=== PATIENT | female | born 1950 | race Caucasian/White ===

== ENCOUNTER 2019-10-23 19:03 | Emergency (ER) | payer MEDICARE ==
[~2019-10-23] VITALS: Ht 157.5 cm; Wt 60.0 kg
[2019-10-23] MEDS ORDERED: METF1000 PO (19:18)
[2019-10-23] MEDS ORDERED: INSU100V8 SQ (19:18)
[2019-10-23] MEDS ORDERED: SIMV20TA19 PO (19:18)
--- NOTE | 2019-10-23 19:29 | NUR ---
[employer]: PT TO ROOM FROM LOBBY
[2019-10-23] MEDS ORDERED: SODIUM CHLORIDE FLUSH 10ML SYR IVF ONE (19:30)
[2019-10-23 19:57] LABS: MICROSCOPIC AUTO
[2019-10-23 19:58] LABS: BASOPHILS # (AUTO) 0.04 x10^3/uL (0-0.1); BASOPHILS % (AUTO) 1 % (0-1); EOSINOPHILS # (AUTO) 0.25 x10^3/uL (0-0.4); EOSINOPHILS % (AUTO) 4 % (1-7); LYMPHOCYTES # (AUTO) 2.41 x10^3/uL (1-3.4); LYMPHOCYTES % (AUTO) 37 % (22-44); MD NO; MEAN CORPUSCULAR HGB CONC 32.1 g/dL (32.4-35.8); MEAN CORPUSCULAR VOLUME 77.9 fL (80-100); MEAN PLATELET VOLUME 8.9 fL (7.4-10.4); MONOCYTES # (AUTO) 0.59 x10^3/uL (0.2-0.8); MONOCYTES % (AUTO) 9 % (2-9); NEUTROPHILS # (AUTO) 3.32 x10^3/uL (1.8-6.8); NEUTROPHILS % (AUTO) 50 % (42-75); PLATELET COUNT 304 x10^3/uL (130-400); RED BLOOD COUNT 4.82 x10^6/uL (3.82-5.3); RED CELL DISTRIBUTION WIDTH 17.3 % (9.6-15.2)
[2019-10-23 20:01] LABS: CULTURE INDICATED? YES
[2019-10-23 20:04] LABS: ALANINE AMINOTRANSFERASE 16 U/L (12-78); ALBUMIN 4.1 g/dL (3.4-5.0); ANION GAP 6 mmol/L (5-15); CALCIUM 9.5 mg/dL (8.5-10.1); CHLORIDE 105 mmol/L (98-107)
[2019-10-23 20:06] LABS: ALKALINE PHOSPHATASE 68 U/L (45-117); BILIRUBIN,TOTAL 0.2 mg/dL (0.2-1.0); CREATININE 0.71 mg/dL (0.55-1.02); TOTAL PROTEIN 8.4 g/dL (6.4-8.2)
[2019-10-23] MEDS ORDERED: OMNIPAQUE 350 MG/ML, 100ML BOTTLE ONE (20:32)
[2019-10-23 22:53] VITALS: BP 146/76
== END 2019-10-23 22:57 | disposition home or self-care (01) ==
LOC: ED 21:05
DX: N30.00 Acute cystitis without hematuria (principal); E11.65 Type 2 diabetes mellitus with hyperglycemia; E78.5 Hyperlipidemia, unspecified; R10.31 Right lower quadrant pain; Z90.49 Acquired absence of other specified parts of digestive tract
CPT/HCPCS: 36415; 74177; 80053; 81001; 83690; 85025; 87077; 87086; 87186; 99285; Q9967

== ENCOUNTER 2019-10-26 06:14 | Emergency (ER) | payer MEDICARE ==
[~2019-10-26] VITALS: Ht 157.5 cm; Wt 52.7 kg
[~2019-10-26 06:14] MED LIST: INSU100V8 SQ; METF1000 PO; SIMV20TA19 PO
[2019-10-26] MEDS ORDERED: SODIUM CHLORIDE FLUSH 10ML SYR IVF ONE (06:30)
[2019-10-26] MEDS ORDERED: ONDANSETRON 2MG/ML, 2ML IVPush ONE (06:30)
--- NOTE | 2019-10-26 06:37 | NUR ---
THIS IS A 69 YO FEMALE COMING IN FOR LLQ AND LEFT FLANK PAIN STARTED 10/19/19. WAS SEEN HERE A FEW DAYS AGO AND WAS SENT HOME WITH DX OF URINARY TRACT INFECTION WITH ABX RX. PATIENT STATES ABX HAVE NOT HELPED AND INFECTION "IS GETTING WORSE". PATIENT DENIES HEMATURIA OR DYSURIA, DOES STATE SHE HAS HAD INCREASED FREQUNCY IN URINATION. SPO2 AND BP MONITORING IN PLACE, VSS. CALL LIGHT IN REACH. PATIENT AMBULATORY WITH STEADY GAIT TO RESTROOM, UA CUP PROVIDED
[2019-10-26] MEDS ORDERED: ONDANSETRON 2MG/ML, 2ML ONE (06:42)
--- NOTE | 2019-10-26 06:46 | NUR ---
PATIENT STATES SHE WAS UNABLE TO PRODUCE ANY URINE, WILL ATEEMPT TO COLLECT URINE LATER
--- NOTE | 2019-10-26 06:49 | NUR ---
Bedside report received from Sheridan RN, pt care transferred at this time. Pt resting in gurney, call light within reach, even and unlabored respirations, NAD, eyes open, denies additional needs at this time.
--- NOTE | 2019-10-26 06:54 | NUR ---
PIV PLACED, LABS DRAWN, PATIENT MEDICATED PER EMAR
--- NOTE | 2019-10-26 06:59 | NUR ---
REPORT GIVEN TO HAM ROWE. PLAN OF CARE DISCUSSED
[2019-10-26 07:14] LABS: ALANINE AMINOTRANSFERASE 16 U/L (12-78); ALBUMIN 4.2 g/dL (3.4-5.0); ANION GAP 9 mmol/L (5-15); CALCIUM 9.3 mg/dL (8.5-10.1); CHLORIDE 100 mmol/L (98-107); CREATININE 0.78 mg/dL (0.55-1.02)
[2019-10-26 07:16] LABS: ALKALINE PHOSPHATASE 64 U/L (45-117); BILIRUBIN,TOTAL 0.6 mg/dL (0.2-1.0); TOTAL PROTEIN 8.5 g/dL (6.4-8.2)
[2019-10-26 07:26] LABS: MEAN CORPUSCULAR HEMOGLOBIN 25.1 pg (27.0-34.8); MEAN CORPUSCULAR HGB CONC 31.8 g/dL (32.4-35.8); MEAN PLATELET VOLUME 8.9 fL (7.4-10.4); PLATELET COUNT 308 x10^3/uL (130-400); RED BLOOD COUNT 4.73 x10^6/uL (3.82-5.3); RED CELL DISTRIBUTION WIDTH 16.8 % (9.6-15.2)
[2019-10-26] MEDS ORDERED: OMNIPAQUE 350 MG/ML, 100ML BOTTLE ONE (07:37)
--- NOTE | 2019-10-26 07:42 | NUR ---
PT AMBULATED TO BATHROOM WITH A SMOOTH AND STEADY GAIT, STAND BY ASSIST. UA OBTAINED AND TUBED TO LAB, PT BACK IN [facility], EVEN AND UNLABORED RESPRIATIONS, AT BEDSIDE, ERP AT BS TO DISCUSS PLAN OF CARE. NAD. WCTM. WAITING FOR UA RESULTS
[2019-10-26 07:48] LABS: MD MORPH REVIEW ONLY
[2019-10-26 07:49] LABS: <PLATELET ESTIMATE> ADEQUATE; <PLT MORPHOLOGY> NORMAL PLT MORPH; ANISOCYTOSIS 1+; BASOPHILS # (AUTO) 0.03 x10^3/uL (0-0.1); BASOPHILS % (AUTO) 0 % (0-1); EOSINOPHILS % (AUTO) 2 % (1-7); LYMPHOCYTES # (AUTO) 1.71 x10^3/uL (1-3.4); LYMPHOCYTES % (AUTO) 28 % (22-44); MICROCYTOSIS 1+; MONOCYTES # (AUTO) 0.59 x10^3/uL (0.2-0.8); MONOCYTES % (AUTO) 10 % (2-9); NEUTROPHILS # (AUTO) 3.67 x10^3/uL (1.8-6.8); NEUTROPHILS % (AUTO) 60 % (42-75); OVALOCYTES 1+
[2019-10-26] MEDS ORDERED: CEFTRIAXONE PMX 1GM/50ML 50 ML ONE (07:56)
[2019-10-26] MEDS ORDERED: MORPHINE SULFATE 4 MG/ML, 1ML ONE (07:56)
[2019-10-26] MEDS ORDERED: MORPHINE SULFATE 4 MG/ML, 1ML IVPush PRN (08:00)
[2019-10-26] MEDS ORDERED: CEFTRIAXONE PMX 1GM/50ML 50 ML IV ONE (08:00)
[2019-10-26 08:12] LABS: MICROSCOPIC AUTO
[2019-10-26 08:26] LABS: CULTURE INDICATED? NO
--- NOTE | 2019-10-26 08:36 | NUR ---
PT RESTING IN GURNEY, EVEN AND UNLABORED RESPRIATIONS, AT BEDSIDE, DENIES ADDITIONAL NEEDS AT THIS TIME, STATES PAIN IS NOW AT 0/10. NAD. WCTM. WAITING FOR UA RESULTS.
--- NOTE | 2019-10-26 08:42 | NUR ---
PT USED BEDSIDE COMMODE, TRANSFERRED WITH STAND BY ASSIST. BACK TO [facility], DENIES ADDITIONAL NEEDS, NAD, WCTM. AT
--- NOTE | 2019-10-26 09:48 | NUR ---
pt resting in [place], at , denies additional needs at this time, call light within reach, even and unlabored respirations, wctm.
[2019-10-26 10:52] VITALS: BP 128/64
== END 2019-10-26 10:58 | disposition home or self-care (01) ==
LOC: ED 07:08
DX: N10 Acute pyelonephritis (principal); R31.9 Hematuria, unspecified; N39.0 Urinary tract infection, site not specified; E11.65 Type 2 diabetes mellitus with hyperglycemia; E78.5 Hyperlipidemia, unspecified
CPT/HCPCS: 36415; 74177; 80053; 81001; 85025; 96365; 96375; 99285; J0696; J2270; J2405; Q9967

== ENCOUNTER 2019-10-28 04:51 | Emergency (ER) | payer MEDICARE ==
[~2019-10-28] VITALS: Ht 157.5 cm; Wt 58.1 kg
[2019-10-28] MEDS ORDERED: SODIUM CHLORIDE 0.9% 1,000 ML IV ONE (05:07)
[2019-10-28] MEDS ORDERED: MORPHINE SULFATE 4 MG/ML, 1ML ONE (05:45)
[2019-10-28] MEDS ORDERED: ONDANSETRON 2MG/ML, 2ML ONE (05:45)
[2019-10-28 05:53] LABS: ANION GAP 6 mmol/L (5-15); CALCIUM 9.6 mg/dL (8.5-10.1); CHLORIDE 105 mmol/L (98-107); CREATININE 0.74 mg/dL (0.55-1.02)
--- NOTE | 2019-10-28 05:59 | NUR ---
pt with RLQ pain that radiates to right flank x several days. has been seen here recently for ABD pain but pain has not improved. denies n/v/d. PIV placed and pt medicated per emar for pain. urine sent to lab. pending blood and urine results.
[2019-10-28] MEDS ORDERED: MORPHINE SULFATE 4 MG/ML, 1ML IVPush ONE (06:00)
[2019-10-28] MEDS ORDERED: ONDANSETRON 2MG/ML, 2ML IVPush ONE (06:00)
[2019-10-28] MEDS ORDERED: morphine SULFATE 10 MG/ML, 1ML IVPush ONE (06:00)
[2019-10-28 06:04] LABS: MICROSCOPIC NOT IND
[2019-10-28 06:05] LABS: BASOPHILS # (AUTO) 0.04 x10^3/uL (0-0.1); BASOPHILS % (AUTO) 1 % (0-1); EOSINOPHILS # (AUTO) 0.21 x10^3/uL (0-0.4); EOSINOPHILS % (AUTO) 4 % (1-7); LYMPHOCYTES # (AUTO) 1.54 x10^3/uL (1-3.4); LYMPHOCYTES % (AUTO) 30 % (22-44); MD NO; MEAN CORPUSCULAR HGB CONC 32.2 g/dL (32.4-35.8); MEAN CORPUSCULAR VOLUME 77.7 fL (80-100); MEAN PLATELET VOLUME 8.8 fL (7.4-10.4); MONOCYTES # (AUTO) 0.48 x10^3/uL (0.2-0.8); MONOCYTES % (AUTO) 9 % (2-9); NEUTROPHILS # (AUTO) 2.81 x10^3/uL (1.8-6.8); NEUTROPHILS % (AUTO) 55 % (42-75); PLATELET COUNT 295 x10^3/uL (130-400); RED BLOOD COUNT 4.59 x10^6/uL (3.82-5.3)
[2019-10-28 06:11] LABS: CULTURE INDICATED? NO
--- NOTE | 2019-10-28 06:50 | NUR ---
REPORT RECEIVED FROM ELVIA CHEEK.
[2019-10-28 06:58] VITALS: BP 141/67
--- NOTE | 2019-10-28 06:58 | NUR ---
US AT BEDSIDE AT THIS TIME.
--- NOTE | 2019-10-28 07:42 | NUR ---
PT RESTING IN [facility]. PT'S AOX4. RESPS EVEN AND UNLABORED. BP/SPO2 MONITORS IN PLACE. CALL LIGHT WITHIN REACH.
--- NOTE | 2019-10-28 07:52 | NUR ---
Patient given discharge instructions and they have confirmed that they understand the instructions. Patient ambulatory with steady gait.
== END 2019-10-28 07:53 | disposition home or self-care (01) ==
LOC: ED 05:24
DX: K59.00 Constipation, unspecified (principal); R10.31 Right lower quadrant pain; E11.9 Type 2 diabetes mellitus without complications; E78.5 Hyperlipidemia, unspecified; M54.9 Dorsalgia, unspecified
CPT/HCPCS: 36415; 74022; 76856; 80048; 81003; 82040; 83605; 84145; 85025; 87040; 96374; 96375; 99285; J2270; J2405; J7030

== ENCOUNTER 2019-10-31 04:13 | Emergency (ER) | payer MEDICARE ==
[~2019-10-31] VITALS: Ht 157.5 cm; Wt 54.8 kg
--- NOTE | 2019-10-31 04:37 | NUR ---
Patient presents to ER c/o RLQ abd pain x1 week. Patient has been seen here for the same x4 in the last week. Patient was dx with a UTI which she completed abx for; denies urinary symptoms. Dx with bowel obstruction; patient now having normal BMs; last BM yesterday and normal for patient. Patient c/o continuing pain. Worse at night while lying down. Patient denies N/V. Patient took 1gm tylenol at 2100 last night with no relief. Patient is in NAD. Respirations even and unlabored.
[2019-10-31] MEDS ORDERED: SODIUM CHLORIDE FLUSH 10ML SYR IVF ONE (05:30)
[2019-10-31] MEDS ORDERED: ONDANSETRON 2MG/ML, 2ML IVPush ONE (05:30)
[2019-10-31] MEDS ORDERED: MORPHINE SULFATE 4 MG/ML, 1ML IVPush PRN (05:30)
[2019-10-31 05:36] LABS: MEAN CORPUSCULAR HEMOGLOBIN 25.1 pg (27.0-34.8); MEAN CORPUSCULAR VOLUME 78.5 fL (80-100); MEAN PLATELET VOLUME 8.5 fL (7.4-10.4); PLATELET COUNT 295 x10^3/uL (130-400); RED BLOOD COUNT 4.38 x10^6/uL (3.82-5.3); RED CELL DISTRIBUTION WIDTH 17.2 % (9.6-15.2)
[2019-10-31] MEDS ORDERED: ONDANSETRON 2MG/ML, 2ML ONE (05:37)
[2019-10-31] MEDS ORDERED: MORPHINE SULFATE 4 MG/ML, 1ML ONE (05:37)
[2019-10-31 05:42] LABS: ALBUMIN 3.8 g/dL (3.4-5.0); ANION GAP 9 mmol/L (5-15); CHLORIDE 103 mmol/L (98-107); CREATININE 0.71 mg/dL (0.55-1.02)
[2019-10-31 05:54] LABS: MICROSCOPIC NOT IND
[2019-10-31 05:56] LABS: CULTURE INDICATED? NO
[2019-10-31 06:01] LABS: BASOPHILS % (AUTO) 0 % (0-1); EOSINOPHILS # (AUTO) 0.15 x10^3/uL (0-0.4); EOSINOPHILS % (AUTO) 3 % (1-7); LYMPHOCYTES # (AUTO) 1.27 x10^3/uL (1-3.4); LYMPHOCYTES % (AUTO) 25 % (22-44); MD SCAN; MONOCYTES # (AUTO) 0.56 x10^3/uL (0.2-0.8); MONOCYTES % (AUTO) 11 % (2-9); NEUTROPHILS # (AUTO) 3.07 x10^3/uL (1.8-6.8); NEUTROPHILS % (AUTO) 61 % (42-75)
[2019-10-31 06:30] VITALS: BP 140/73
== END 2019-10-31 07:00 | disposition home or self-care (01) ==
LOC: ED 05:16
DX: E10.65 Type 1 diabetes mellitus with hyperglycemia (principal); E78.5 Hyperlipidemia, unspecified; R10.31 Right lower quadrant pain; R11.0 Nausea; Z90.49 Acquired absence of other specified parts of digestive tract; Z90.710 Acquired absence of both cervix and uterus
CPT/HCPCS: 36415; 80048; 81003; 82040; 85025; 96374; 96375; 99284; J2270; J2405

== ENCOUNTER 2019-11-05 00:38 | Emergency (ER) | payer MEDICARE ==
[~2019-11-05] VITALS: Ht 157.5 cm; Wt 59.4 kg
[2019-11-05 00:40] VITALS: BP 136/69
[2019-11-05 01:10] LABS: BASOPHILS # (AUTO) 0.05 x10^3/uL (0-0.1); BASOPHILS % (AUTO) 1 % (0-1); EOSINOPHILS # (AUTO) 0.25 x10^3/uL (0-0.4); EOSINOPHILS % (AUTO) 5 % (1-7); LYMPHOCYTES # (AUTO) 1.75 x10^3/uL (1-3.4); LYMPHOCYTES % (AUTO) 32 % (22-44); MD NO; MEAN CORPUSCULAR HEMOGLOBIN 25.4 pg (27.0-34.8); MEAN CORPUSCULAR HGB CONC 32.5 g/dL (32.4-35.8); MEAN CORPUSCULAR VOLUME 78.2 fL (80-100); MEAN PLATELET VOLUME 8.6 fL (7.4-10.4); MONOCYTES # (AUTO) 0.51 x10^3/uL (0.2-0.8); MONOCYTES % (AUTO) 9 % (2-9); NEUTROPHILS # (AUTO) 2.96 x10^3/uL (1.8-6.8); NEUTROPHILS % (AUTO) 54 % (42-75); PLATELET COUNT 300 x10^3/uL (130-400); RED BLOOD COUNT 3.91 x10^6/uL (3.82-5.3)
[2019-11-05] MEDS ORDERED: ONDANSETRON 2MG/ML, 2ML ONE (01:10)
[2019-11-05] MEDS ORDERED: KETOROLAC 30 MG/1 ML ONE (01:10)
[2019-11-05] MEDS ORDERED: MORPHINE SULFATE 4 MG/ML, 1ML ONE (01:10)
[2019-11-05 01:18] LABS: ALANINE AMINOTRANSFERASE 21 U/L (12-78); ALBUMIN 3.4 g/dL (3.4-5.0); ANION GAP 7 mmol/L (5-15); CHLORIDE 106 mmol/L (98-107); CREATININE 0.89 mg/dL (0.55-1.02)
[2019-11-05 01:21] LABS: ALKALINE PHOSPHATASE 50 U/L (45-117); BILIRUBIN,TOTAL 0.2 mg/dL (0.2-1.0); TOTAL PROTEIN 7.1 g/dL (6.4-8.2)
[2019-11-05] MEDS ORDERED: MORPHINE SULFATE 4 MG/ML, 1ML IVPush PRN (01:30)
[2019-11-05] MEDS ORDERED: KETOROLAC 30 MG/1 ML IVPush ONE (01:30)
[2019-11-05] MEDS ORDERED: SODIUM CHLORIDE FLUSH 10ML SYR IVF ONE (01:30)
[2019-11-05] MEDS ORDERED: ONDANSETRON 2MG/ML, 2ML IVPush ONE (01:30)
[2019-11-05 01:54] LABS: MICROSCOPIC NOT IND
[2019-11-05 01:57] LABS: CULTURE INDICATED? NO
== END 2019-11-05 02:31 | disposition home or self-care (01) ==
LOC: ED 01:09
DX: R10.31 Right lower quadrant pain (principal); G89.29 Other chronic pain; E11.65 Type 2 diabetes mellitus with hyperglycemia; E78.5 Hyperlipidemia, unspecified; Z90.49 Acquired absence of other specified parts of digestive tract
CPT/HCPCS: 36415; 80053; 81003; 83690; 85025; 96374; 96375; 99284; J1885; J2270; J2405

== ENCOUNTER 2019-11-12 16:20 | Emergency (ER) | payer MEDICARE ==
[~2019-11-12] VITALS: Ht 154.9 cm; Wt 57.4 kg
[2019-11-12 16:55] LABS: BASOPHILS # (AUTO) 0.05 x10^3/uL (0-0.1); BASOPHILS % (AUTO) 1 % (0-1); EOSINOPHILS # (AUTO) 0.25 x10^3/uL (0-0.4); EOSINOPHILS % (AUTO) 3 % (1-7); LYMPHOCYTES # (AUTO) 2.93 x10^3/uL (1-3.4); LYMPHOCYTES % (AUTO) 38 % (22-44); MD NO; MEAN CORPUSCULAR HGB CONC 31.4 g/dL (32.4-35.8); MEAN CORPUSCULAR VOLUME 79.7 fL (80-100); MEAN PLATELET VOLUME 8.7 fL (7.4-10.4); MONOCYTES # (AUTO) 0.65 x10^3/uL (0.2-0.8); MONOCYTES % (AUTO) 8 % (2-9); NEUTROPHILS # (AUTO) 3.86 x10^3/uL (1.8-6.8); NEUTROPHILS % (AUTO) 50 % (42-75); PLATELET COUNT 385 x10^3/uL (130-400); RED BLOOD COUNT 4.95 x10^6/uL (3.82-5.3); RED CELL DISTRIBUTION WIDTH 18.4 % (9.6-15.2)
--- NOTE | 2019-11-12 16:58 | NUR ---
"SITTING DOWN WQATCHING TV. STARTED HAVING PALPATATIONS, THEN CP, THEN ARM PAIN, THEN THE SOB CAME" STARTED 1 HOUR AGO. PATIENT NOW IN NSR AFTER IV START. PATIENT IS FEELING BETTER NO SOB, CHEST PAIN. EKG DONE MD NOTIFIED.
[2019-11-12] MEDS ORDERED: DILTIAZEM 5 MG/ML, 5ML IV ONE (17:00)
[2019-11-12] MEDS ORDERED: METOPROLOL TARTRATE 25 MG TAB PO ONE (17:00)
[2019-11-12] MEDS ORDERED: DILTIAZEM 125 MG in SODIUM CHLORIDE 0.9% 100 ML IV SCH (17:00)
[2019-11-12 17:06] LABS: ALANINE AMINOTRANSFERASE 16 U/L (12-78); ANION GAP 11 mmol/L (5-15); CALCIUM 9.7 mg/dL (8.5-10.1); CHLORIDE 101 mmol/L (98-107); CREATININE 0.99 mg/dL (0.55-1.02)
[2019-11-12 17:10] LABS: ALKALINE PHOSPHATASE 67 U/L (45-117); BILIRUBIN,TOTAL 0.2 mg/dL (0.2-1.0); TOTAL PROTEIN 8.4 g/dL (6.4-8.2); TROPONIN I < 0.015 ng/mL (0.000-0.045)
[2019-11-12 17:31] LABS: FREE T4 (FREE THYROXINE) 0.86 ng/dL (0.76-1.46)
[2019-11-12] MEDS ORDERED: METOPROLOL TARTRATE 50 MG TAB ONE (17:43)
--- NOTE | 2019-11-12 18:26 | NUR ---
PATIENT IS CALM IN BED NOT HAVING ANY PAIN AT THIS TIME. REQUESTING TO GO HOME
--- NOTE | 2019-11-12 19:36 | NUR ---
pt d/c with d/c summary and scripts. pt iv d/c with tip intact. pt questions answered. pt denies any other needs pertaining to this visit. vss. pt ambulates to registration desk with steady gait for d/c home with spouse.
[2019-11-12 19:37] VITALS: BP 117/73
== END 2019-11-12 19:43 | disposition home or self-care (01) ==
LOC: ED 16:31
DX: I48.91 Unspecified atrial fibrillation (principal); R00.2 Palpitations; R42 Dizziness and giddiness; R00.0 Tachycardia, unspecified; E11.65 Type 2 diabetes mellitus with hyperglycemia; E78.5 Hyperlipidemia, unspecified; Z90.49 Acquired absence of other specified parts of digestive tract
CPT/HCPCS: 36415; 71045; 80053; 84439; 84443; 84484; 85025; 93005; 99285

== ENCOUNTER → 2020-11-12 | Outpatient (CLI) | payer MEDICARE | END | disposition home or self-care (01) | LOC: CFH 06:46 | PROVIDERS: ATTEND Internal Medicine Cardiovascular Disease | DX: I36.1 Nonrheumatic tricuspid (valve) insufficiency (principal); I48.91 Unspecified atrial fibrillation; E78.5 Hyperlipidemia, unspecified; R00.2 Palpitations | CPT/HCPCS: 93306 ==

== ENCOUNTER → 2021-01-02 | Outpatient (CLI) | payer MEDICARE ==
[~2021-01-02] MED LIST changes: +REGADENOSON 0.4 MG/5 ML SYRINGE ONE
== END | disposition home or self-care (01) ==
LOC: CFH 12:40
PROVIDERS: ATTEND Internal Medicine Cardiovascular Disease
DX: I48.91 Unspecified atrial fibrillation (principal); E78.5 Hyperlipidemia, unspecified; R00.2 Palpitations
CPT/HCPCS: 78452; 93017; A9502; J2785